=== PATIENT | female | born 2000 | race Caucasian/White ===

== ENCOUNTER 2019-08-21 08:00 | Emergency (ER) | payer OTHER, SELFPAY ==
[2019-08-21 08:10] VITALS: BP 129/69; PULSE 70; RESP 16; TEMP 37.2; O2SAT 100
--- NOTE | 2019-08-21 08:17 | ED.UPPEXIN ---
HPI - Extremity Injury (Upper) General Chief Complaint: Skin/Abscess/Foreign Body Stated Complaint: right elbow infection Time Seen by Provider: 08/21/19 08:17 Source: patient and RN notes reviewed Mode of arrival: ambulatory Limitations: no limitations History of Present Illness HPI narrative: This is a 18 years old female presented office for evaluation of possible skin infection of her right elbow. She noticed a small pimple a few days ago which her mother has tried to squeezed it and made it worse. She noticed the lesion is getting worse with pain, redness and swelling. Immunizations up-to-date. Denies history of MRSA. Denies direct trauma or injury. Denies insect bite. Related Data Allergies Allergy/AdvReac Type Severity Reaction Status Date / Time No Known Allergies Allergy Verified 08/21/19 08:17 Review of Systems Review of Systems: Narrative: CONSTITUTIONAL: Denies fever or feeling ill ENT: Denies congestion CARDIOVASCULAR: Denies chest pain RESPIRATORY: Denies cough GASTROINTESTINAL: Denies abdominal pain, nausea, vomiting SKIN:Reports painful lesion on her right elbow with swelling and redness. MUSCULOSKELETAL: Denies joints pain NEUROLOGIC: Denies lightheaded PMFSH Social History Social History Smoking status: Never smoker Alcohol intake: never Comments At time of signature, I agree with nursing past medical, surgical, social and family history. There is no relevant family history pertinent to the presenting complaint. Exam Narrative: Exam Narrative: GENERAL: This is a well-nourished, well-developed patient, in no apparent distress. NECK: Neck supple, non-tender without lymphadenopathy, masses or thyromegaly. CARDIOVASCULAR: Regular rate and rhythm without murmurs, gallops, or rubs. RESPIRATORY: Clear to auscultation. Breath sounds equal bilaterally. No wheezes, rales, or rhonchi. GASTROINTESTINAL: Abdomen soft, non-tender, nondistended. Bowel sounds are active. No hepato-splenomegaly, or palpable masses. No guarding. SKIN: warm, intact with no suspicious lesions or rash, good texture and turgor. NEURO: awake, alert, and oriented to person, place and time. There were no obvious focal neurologic abnormalities. Steady gait EXTREMITIES: right posterior elbow noted a localize tender pustular nodule with edematous and erythema, warmth without lymphandenitis. Xavier Coma Scale Eye Opening: Spontaneous 4 Xavier Coma Scale Motor: Obeys Commands 6 [place] Coma Scale Verbal: Oriented 5 Course Vital Signs Vital signs: Vital Signs Temperature 98.9 F 08/21/19 08:10 Pulse Rate 70 08/21/19 08:10 Respiratory Rate 16 08/21/19 08:10 Blood Pressure 129/69 08/21/19 08:10 Pulse Oximetry 100 08/21/19 08:10 Temperature 98.9 F 08/21/19 08:10 Pulse Rate 70 08/21/19 08:10 Respiratory Rate 16 08/21/19 08:10 Blood Pressure 129/69 08/21/19 08:10 Pulse Oximetry 100 08/21/19 08:10 MDM - Extremity Injury (Upper) MDM Narrative Medical decision making narrative: Discharge instructions reviewed with patient, as well as provided in writing per nursing staff. The instructions also include specific and strict return/GO TO THE ER as well as f/u information. All questions have been answered, and the patient deny any further questions with discharge and discharge plan. Differential Diagnosis Differential diagnosis: Likely other ( Contact/allergic dermatitis, atopic dermatitis, psoriasis, eczema, cellulitis, tinea, erythema multiforme, viral exanthem, drug eruption) Critical Care Time Critical Care Time Critical Care Time: No Discharge Plan Discharge Clinical Impression: Cellulitis of right arm Patient Disposition: Home, Self-Care Condition: Stable Instructions: Antibiotic Form, Cellulitis (ED) Additional Instructions: Clean with soap and water only; Avoid using alcohol and peroxide. Avoid squeezing or touc
== END 2019-08-21 08:30 | disposition home or self-care (01) ==
PROVIDERS: Emergency Provider Nurse Practitioner
DX: L03.113 Cellulitis of right upper limb (principal)
CPT/HCPCS: 99203; G0463

== ENCOUNTER 2023-01-07 14:10 | Outpatient (RCR) | payer OTHER, SELFPAY ==
--- NOTE | 2023-01-07 16:03 | PTOPEVAL1 ---
Assessment and note entered by Vivi Horvath, PT, DPT Evaluation Information Assessment Status Evaluation Diagnosis R AC joint strain Onset 3 weeks Subjective Information Pt states she fell on her R shoulder a few weeks ago and had an AC joint separation. She states the pain has gotten a lot better in the last week or so, she is no longer wearing the sling. She states sleeping and first thing in the morning is when she has the most pain. She states she has good ROM and has been limited how much weight she has been lifting. Pt plays field hockey and states she is really active. Reported Pain Level Pain Score 0: Self Report Assessment PT Clinical Summary Imani presents to therapy today for her initial evaluation with a diagnosis of a AC joint strain 3 weeks ago. Today she demonstrates decreased active strength and ROM in her R shoulder when compared to her L shoulder. Today she was instructed in and education on exercises to focus on shoulder stability and strength, education on which shoulder positions to perform with caution, and how to ease back into her normal exercise routine. She elected to complete her HEP IND and follow up in a month. Plan of Care Interventions Manual Therapy,Neuro Re-education,Therapeutic Activities,Therapeutic Exercise PT Services Indicated Yes Treatment Frequency and follow up in 1 month Duration These treatments will address the objective and functional deficits as defined above. The patient will be advanced safely and appropriately in order for the patient to progress towards his/her prior level of function. Additional exercises will be introduced and as well as a comprehensive home exercise program upon discharge, if needed, ?to ensure carryover of functional gains achieved in the clinic. This treatment plan has been reviewed and agreement upon by the patient.
--- NOTE | 2023-01-28 08:21 | PTOPDC ---
Assessment and note entered by Vivi Horvath, PT, DPT Evaluation Information Assessment Status Discharge - Pt Not Present Diagnosis R AC joint strain Onset 3 weeks Subjective Information Pt called over the weekend to cancel her appointment. Called pt to follow up, she states she is doing much better and does not need to reschedule at this time. She wishes to be discharged. Assessment PT Clinical Summary Imani attended her evaluation on 01/07/23 and has been completing a HEP since.
== END 2023-01-28 09:37 | disposition home or self-care (01) ==
LOC: ANHGOSHPT 14:10
PROVIDERS: PCP Physician Assistant
DX: S43.51XD Sprain of right acromioclavicular joint, subsequent encounter (principal)
CPT/HCPCS: 97110; 97161; 97530

== ENCOUNTER 2023-08-22 09:11 | Outpatient (CLI) | payer OTHER, SELFPAY ==
--- NOTE | ~2023-08-22 | XR_ITS ---
XR sacroiliac joints min 3V Ordering provider: Enmanuel Tijerina PA-C History: . M54.16 - Radiculopathy, lumbar region . Comparison: None. FINDINGS: BONES: No acute fracture or dislocation. JOINTS: The bilateral sacroiliac joint spaces appear well maintained. No bony fusion of the sacroilia c joints or bony erosions. SOFT TISSUES: Unremarkable. IMPRESSION: NO ACUTE OSSEOUS ABNORMALITY. NORMAL SACROILIAC JOINTS. Reviewed, dictated and finalized at location A.
--- NOTE | ~2023-08-22 | XR_ITS ---
3 VIEWS LUMBAR SPINE Ordering provider: Enmanuel Tijerina PA-C History: . M54.16 - Radiculopathy, lumbar region . Comparison: May 09, 2015 FINDINGS: VERTEBRAL BODIES: No visible fracture or subluxation. Dynamic views shows no spondylolisthesis. Possi ble left spondylolysis. DISK SPACES: Normal. SOFT TISSUES: Normal. IMPRESSION: No acute osseous abnormality lumbar spine. Consider follow up MRI lumbar spine if there is concern for spinal stenosis/neural impingement. Reviewed, dictated and finalized at location A. IMPRESSION: No acute osseous abnormality lumbar spine. Consider follow up MRI lumbar spine if there is concern for spinal stenosis/nicola ral impingement.
== END 2023-08-22 09:12 ==
PROVIDERS: PCP Physician Assistant; Visit Provider Physician Assistant
DX: M54.16 Radiculopathy, lumbar region (principal)
CPT/HCPCS: 72114; 72202

== ENCOUNTER 2023-08-29 13:33 | Outpatient (CLI) | payer OTHER, SELFPAY ==
--- NOTE | ~2023-08-29 | MR_ITS ---
MRI of the lumbar spine Clinical History: Radiculopathy Technique: Axial T2-weighted images, and sagittal T1-weighted, T2-weighted, and T2 fat-sat images wer e acquired. Findings: There is no fracture or subluxation of the lumbar spine. Vertebral bodies maintain normal h eight and line. No bone marrow signal abnormality seen. At L1-L2 and L2-L3, there is no disc bulge or herniation. There is mild facet arthropathy at these le vels. No spinal canal stenosis or neural foraminal narrowing at these levels. At L3-L4, there is diffuse disc bulge with small superimposed central disc protrusion. There is mild to moderate facet arthropathy. No atiya central canal stenosis. There is mild to moderate left neural foraminal narrowing, and minimal right neural foraminal narrowing. At L4-L5, there is mild disc bulge with probable tiny annular fissure. There is mild facet arthropath y. No central canal stenosis. There is bilateral neural foraminal narrowing. At L5-S1, there is broad-based disc protrusion, superimposed right paracentral region, with advanced facet arthropathy. No central canal stenosis. There is severe right neural foraminal narrowing, and m ild to moderate left neural foraminal narrowing. Paravertebral soft tissues are unremarkable. Impression: Moderate degenerative spondylosis of the lower lumbar spine, as detailed above. Reviewed, dictated and finalized at location M. Impression: Moderate degenerative spondylosis of the lower lumbar spine, as detailed above.
== END 2023-08-29 13:34 ==
LOC: GOSHIMG 13:34
PROVIDERS: PCP Physician Assistant; Visit Provider Internal Medicine
DX: M47.26 Other spondylosis with radiculopathy, lumbar region (principal)
CPT/HCPCS: 72148

== ENCOUNTER 2023-11-29 08:00 | Outpatient (RCR) | payer OTHER, SELFPAY ==
--- NOTE | 2023-11-06 09:05 | PTOPEVAL1 ---
Assessment and note entered by Vivi Horvath, PT, DPT Evaluation Information Assessment Status Evaluation Diagnosis R sided lumbar radiculopathy ICD-10 Condition Codes (PT) Pain in low back M54.50,Pain in right hip M25.551 Subjective Information Pt states 4 year history of low back pain, within the last couple of months has had numbness going down her entire R leg. She states she got an SIJ injection 2 years ago. She states usually her back pain comes and goes but the leg numbness has been constant for the last couple of months. She declines a KAELYN or anything that could have caused her pain, declines bowel or bladder concerns. She states her pain is at its best in the morning and progressive throughout the day. Static standing or sitting make her pain worse, frequent position changes help to limit her pain. Reported Pain Level Pain Score 3: Self Report Assessment PT Clinical Summary Pt presents to therapy today for her initial evaluation with a diagnosis of R sided lumbar radiculopathy. She reports numbness down her inner thigh down to her medial ankle. Today she demonstrates pelvic asymmetries, and decreased core strength. She has good LE ROM and strength parrish. Pt in limited in her ability to stand for work. Skilled therapy services are indicated to address the deficits noted above, to manage pain, and to improve functional mobility. Plan of Care Interventions Electrical Stimulation,Gait Training,Hot Pack/Cold Pack,Manual Therapy,Mechanical Traction,Neuro Re- education,Patient/Caregiver Educati,Therapeutic Activities,Therapeutic Exercise PT Services Indicated Yes Treatment Frequency and 1x/wk for 6 visits Duration These treatments will address the objective and functional deficits as defined above. The patient will be advanced safely and appropriately in order for the patient to progress towards his/her prior level of function. Additional exercises will be introduced and as well as a comprehensive home exercise program upon discharge, if needed, ?to ensure carryover of functional gains achieved in the clinic. This treatment plan has been reviewed and agreement upon by the patient.
--- NOTE | 2023-11-06 09:05 | OPREHPOC ---
Outpatient Therapy Plan of Care This is a Multidisciplinary Plan of Care that may contain components documented by all disciplines (PT, OT, and ST.) PT Problem 1 PT Problem #1 Knowledge Deficit PT Goal 1 Goal / Goal Update Pt to be IND with issued HEP Target Visit 4 PT Problem 2 PT Problem #2 Pain PT Goal 1 Goal / Goal Update Pt to report back pain no greater than 3/10 in the last week. Target Visit 8 PT Goal 2 Goal / Goal Update Pt to report 75% improvement in overall symptoms. Target Visit 8 PT Problem 3 PT Problem #3 Impaired Sensation PT Goal 1 Goal / Goal Update Pt to decline radicular symptoms in the last week. Target Visit 8 PT Problem 4 PT Problem #4 Impaired Functional Mobil PT Goal 1 Goal / Goal Update Pt to be able to tolerate standing for 1 hour without an increase in pain. Target Visit 8 PT Goal 2 Goal / Goal Update Pt to be able to lift and carry 20lb from ground level without an increase in pain. Target Visit 8
--- NOTE | 2023-12-18 08:07 | PCPTNOTE ---
Patient called & cancelled scheduled appointment this date due to having an appointment with neurosurgery. Will follow up afterwards
--- NOTE | 2024-01-27 10:14 | PTOPDC ---
Assessment and note entered by Vivi Horvath, PT, DPT Evaluation Information Assessment Status Discharge - Pt Not Present Diagnosis R sided lumbar radiculopathy ICD-10 Condition Codes (PT) Pain in low back M54.50,Pain in right hip M25.551 Subjective Information Called and spoke with pt as she cancelled her last appointment a month ago. Pt states she is doing well and can be discharged at this time. Assessment PT Clinical Summary Pt completed 3 visits of therapy from 11/06/23 to 12/18/23. Will be d/c'ed to [facility] at this time.
== END 2024-01-27 10:47 | disposition home or self-care (01) ==
LOC: ANHGOSHPT 08:00
PROVIDERS: PCP Physician Assistant; Visit Provider Neurological Surgery
DX: M54.16 Radiculopathy, lumbar region (principal)
CPT/HCPCS: 97012; 97110; 97140; 97161; 97530